=== PATIENT | male | born 1990 | race Caucasian/White ===

== ENCOUNTER 2025-03-27 16:16 | Emergency (ER) | payer OTHER ==
[2025-03-27] MEDS: Take Home: Cyclobenzaprine 10 MG Tab, 4 Tab Pack PO ONE (17:29)
== END 2025-03-27 17:43 | disposition home or self-care (01) ==
LOC: VM.ED 16:16
DX: S01.311A Laceration without foreign body of right ear, initial encounter (principal); S60.512A Abrasion of left hand, initial encounter; Z88.1 Allergy status to other antibiotic agents; Z79.899 Other long term (current) drug therapy; W55.03XA Scratched by cat, initial encounter; V47.5XXA Car driver injured in collision with fixed or stationary object in traffic accident, initial encounter; Y93.89 Activity, other specified
CPT/HCPCS: 12011; 99283; 99284; A9270